=== PATIENT | female | born 1980 | race African-American/Black ===

== ENCOUNTER 2016-10-06 15:28 | Emergency (ER) | payer OTHER, SELFPAY | END 2016-10-06 16:08 | disposition home or self-care (01) | LOC: NAV ERS 15:28 | DX: S39.012A Strain of muscle, fascia and tendon of lower back, initial encounter (principal); X58.XXXA Exposure to other specified factors, initial encounter | CPT/HCPCS: 99283 ==

== ENCOUNTER 2017-02-02 14:22 | Emergency (ER) | payer OTHER ==
[2017-02-02] MEDS ORDERED: Acetaminophen 500 MG TAB ONE (14:49)
[2017-02-02] MEDS ORDERED: cloNIDine 0.2 MG TAB ONE (15:34)
--- NOTE | 2017-02-02 16:02 | RAD ---
CHEST 2 VIEWS: Date: 02/02/17 COMPARISON: None. HISTORY: Cough and sinus pressure. FINDINGS: Normal cardiac silhouette. Pulmonary vessels and hilum are normal. Costophrenic angles are clear. No consolidation or mass. No osseous abnormalities or pneumothorax. IMPRESSION: No acute cardiopulmonary process. POS: [facility]
[2017-02-02 16:04] LABS: Bilirubin Negative (Negative); Blood, Urine Small (Negative); Clarity Clear (Clear); Glucose, Urine (Dipstick) Negative (Negative); Leukocyte Negative (Negative); Nitrite Negative (Negative); Protein, Urine (Dipstick) Negative (Neg-Trace); Specific Gravity, Urine 1.025 (1.005-1.030); Urobilinogen 0.2 mg/dL (0.2-1.0); pH, Urine 5.5 (5.0-9.0)
[2017-02-02 16:05] LABS: Anion Gap 14 mmol/L (10-20); BUN (Urea Nitrogen) 15 mg/dL (7.0-18.7); Calc. Creatinine Clearance 0 mL/min (70-130); Carbon Dioxide 23 mmol/L (22-29); Chloride 106 mmol/L (98-107); Estimated GFR-MDRD 88; Glucose 77 mg/dL (70-105); Sodium 139 mmol/L (136-145)
[2017-02-02 16:07] LABS: Pregnancy Test - Urine (BHCG) Negative (Negative); Pregu Control Background? CLEAR/WHITE (CLR/WHITE); Pregu Control Bar Appear? YES (CONTROL BAR); Specific Gravity 1.025 (1.002-1.036)
[2017-02-02 16:42] LABS: RBC/HPF 0-3 HPF (0-3)
== END 2017-02-02 16:58 | disposition home or self-care (01) ==
LOC: NAV ERS 14:22
DX: J06.9 Acute upper respiratory infection, unspecified (principal); I16.0 Hypertensive urgency
CPT/HCPCS: 71020; 80048; 81003; 81015; 81025; 93005

== ENCOUNTER 2018-12-13 00:07 | Emergency (ER) | payer OTHER ==
[2018-12-13] MEDS ORDERED: Bacitracin 1 PK ONE (00:52)
[2018-12-13] MEDS ORDERED: Adacel (T-DAP) 0.5 ML SYRINGE ONE (00:52)
== END 2018-12-13 01:43 | disposition home or self-care (01) ==
LOC: NAV ERS 00:07
DX: S91.102A Unspecified open wound of left great toe without damage to nail, initial encounter (principal); I10 Essential (primary) hypertension; E11.9 Type 2 diabetes mellitus without complications; Z79.84 Long term (current) use of oral hypoglycemic drugs; W01.198A Fall on same level from slipping, tripping and stumbling with subsequent striking against other object, initial encounter
CPT/HCPCS: 90471; 90715

== ENCOUNTER 2018-12-26 06:08 | Emergency (ER) | payer OTHER ==
[2018-12-26 06:54] LABS: #Basophils 0.2 thou/uL (0.0-0.2); #Eosinphils 0.2 thou/uL (0.0-0.7); #Lymphocytes 2.4 thou/uL (1.20-3.40); #Monocytes 0.8 thou/uL (0.11-0.59); #Neutrophils 2.7 thou/uL (1.40-6.50); %Basophils 2.5 % (0.0-1.0); %Eosinophils 2.9 % (0.0-10.0); %Lymphocytes 38.8 % (21.0-51.0); %Monocytes 12.2 % (0.0-10.0); %Neutrophils 43.7 % (42.0-75.0); Hemoglobin 13.6 g/dL (12.0-16.0); Mean Corpuscular HGB CONC 32.3 g/dL (32.0-36.0); Mean Corpuscular Hemoglobin 30.8 pg (27.0-31.0); Mean Corpuscular Volume 95.3 fL (78.0-98.0); Mean Platelet Volume 5.8 fL (7.4-10.4); Platelet Count 360 thou/uL (130-400); RBC Distribution Width 12.2 % (11.5-14.5); Red Blood Cell (RBC) Count 4.42 mill/uL (4.20-5.40); White Blood Cell (WBC) Count 6.2 thou/uL (4.8-10.8)
[2018-12-26] MEDS ORDERED: Aspirin Chewable 81 MG TAB ONE (06:58)
[2018-12-26] MEDS ORDERED: Diltiazem 125 MG/25 ML ONE (06:59)
[2018-12-26] MEDS ORDERED: Sodium Chloride 0.9% 0 ML ONE (07:00)
[2018-12-26] MEDS ORDERED: Sodium Chloride 0.9% 100 ML ONE (07:04)
[2018-12-26 07:09] LABS: ALT (SGPT) 12 U/L (8-55); AST (SGOT) 18 U/L (5-34); Alkaline Phosphatase 50 U/L (40-150); Anion Gap 15 mmol/L (10-20); BUN (Urea Nitrogen) 22 mg/dL (7.0-18.7); Bilirubin, Total 0.5 mg/dL (0.2-1.2); Calc. Creatinine Clearance 0 mL/min (70-130); Calcium 9.2 mg/dL (7.8-10.44); Carbon Dioxide 18 mmol/L (22-29); Chloride 108 mmol/L (98-107); Estimated GFR-MDRD 57; Globulin 3.4 g/dL (2.4-3.5); Glucose 92 mg/dL (70-105); Potassium 4.3 mmol/L (3.5-5.1); Protein, Total 7.4 g/dL (6.0-8.3); Sodium 137 mmol/L (136-145)
--- NOTE | 2018-12-26 08:48 | RAD ---
PORTABLE CHEST: Date: 12/26/18 HISTORY: Dizziness, shortness of breath. FINDINGS: Lungs are clear. No infiltrate or vascular congestion. Heart and mediastinum unremarkable. IMPRESSION: No acute findings. POS: [facility]
== END 2018-12-26 07:59 | disposition short-term general hospital (02) ==
LOC: NAV ERS 06:08
DX: I48.92 Unspecified atrial flutter (principal); E11.9 Type 2 diabetes mellitus without complications; I10 Essential (primary) hypertension; Z79.84 Long term (current) use of oral hypoglycemic drugs; Z79.899 Other long term (current) drug therapy
CPT/HCPCS: 71045; 80053; 84443; 84484; 85025; 93005; 94760; 96365; 96376; J3490